=== PATIENT | male | born 1945 | race Caucasian/White ===

== ENCOUNTER 2020-04-14 09:34 | Emergency (ER) | payer OTHER, BC ==
[~2020-04-14] VITALS: Ht 175.3 cm; Wt 78.5 kg
[~2020-04-14 09:34] MED LIST: CLOP75TA32 PO; GLU500 PO; GLYBURIDE; LIP40 PO; LOSA100T3 PO; LOVASTATIN
[2020-04-14 09:43] VITALS: BP_SYST 156
--- NOTE | 2020-04-14 09:43 | NUR ---
Patient triaged and placed in waiting room. VSS and patient appears in no acute distress at this time. Awaiting available bed, and MD notified of need for MSE.
--- NOTE | 2020-04-14 10:13 | NUR ---
ER in waiting room examining patient.
--- NOTE | 2020-04-14 10:33 | NUR ---
Patient to ER chair for evaluation. Side rails up. Report given to MELISSA Roa.
--- NOTE | 2020-04-14 10:34 | NUR ---
Patient came from home for evaluation of left arm pain since last night. He maintains his arm in an upward position for comfort. Patient has no other complaints at this time.
[2020-04-14] MEDS ORDERED: KETOROLAC TROMETHAMINE 30 MG VIAL IM ONE (10:45)
[2020-04-14] MEDS ORDERED: HYDROcodone/ACETAMIN 5-325 MG TAB (NORCO/ VICODIN) PO ONE (11:30)
[2020-04-14 12:41] VITALS: BP_SYST 156
--- NOTE | 2020-04-14 12:43 | NUR ---
Patient given written and verbal discharge instructions and verbalizes understanding. ER MD discussed with patient the results and treatment provided. Patient in stable condition. ID arm band removed. Rx of Naproxen and Prednisone given. Patient educated on pain management and to follow up with PMD. Pain Scale 2/10. Opportunity for questions provided and answered. Medication side effect fact sheet provided.
== END 2020-04-14 12:41 | disposition home or self-care (01) ==
LOC: SED 09:34
DX: M75.32 Calcific tendinitis of left shoulder (principal); Z79.84 Long term (current) use of oral hypoglycemic drugs; Z79.899 Other long term (current) drug therapy
CPT/HCPCS: 36415; 72050; 73030; 73080; 84550; 96372; 99284; J1885

== ENCOUNTER 2021-04-16 09:56 | Outpatient (CLI) | payer OTHER, BC | END 2021-04-16 19:29 | disposition home or self-care (01) | LOC: SMI 09:56 | PROVIDERS: ATTEND Specialist | DX: M54.2 Cervicalgia (principal); M19.012 Primary osteoarthritis, left shoulder; M25.412 Effusion, left shoulder; M19.011 Primary osteoarthritis, right shoulder; M25.411 Effusion, right shoulder | CPT/HCPCS: 72141; 73221 ==